=== PATIENT | female | born 1970 | race African-American/Black ===

== ENCOUNTER 2020-11-05 09:17 | Emergency (ER) | payer SELFPAY ==
--- NOTE | 2020-11-05 14:45 | RAD REPORT ---
EXAM DESCRIPTION: RAD - Chest Single View - 11/05/2020 2:38 pm CLINICAL HISTORY: COUGH Chest pain. COMPARISON: No comparisons FINDINGS: Portable technique limits examination quality. The lungs are grossly clear. The heart is normal in size. No displaced fractures. IMPRESSION: No acute intrathoracic process suspected.
[2020-11-05] MEDS ORDERED: ALBUTEROL 2.5 MG/3 ML NEB SOL ONE (14:58)
[2020-11-05] MEDS ORDERED: IPRATROPIUM BROM 0.5MG/2.5ML ONE (14:58)
--- NOTE | 2020-11-05 15:05 | EDPHYS ---
Physician Documentation [facility] Name: Linda Taylor Age: 50 yrs Sex: Female : 1970 Arrival Date: 11/05/2020 Time: 09:23 Bed Treatment Private MD: ED Physician Terry Melgoza HPI: 11/05 16:51 This 50 yrs old Black Female presents to ER via Ambulatory with complaints of Cough, kdr Chills,fatigue. 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 - Social history:: Smoking status: unknown. ROS: 16:58 Constitutional: Negative for fever, chills, and weight loss, Eyes: Negative for injury, kdr pain, redness, and discharge, ENT: Negative for injury, pain, and discharge, Neck: Negative for injury, pain, and swelling, Back: Negative for injury and pain, : Negative for injury, bleeding, discharge, and swelling, MS/Extremity: Negative for injury and deformity, Skin: Negative for injury, rash, and discoloration, Neuro: Negative for headache, weakness, numbness, tingling, and seizure activity. Psych: Negative for depression, anxiety, suicide ideation, homicidal ideation, and hallucinations, Allergy/Immunology: Negative for hives, rash, and allergies, Endocrine: Negative for neck swelling, polydipsia, polyuria, polyphagia, and marked weight changes, Hematologic/Lymphatic: Negative for swollen nodes, abnormal bleeding, and unusual bruising. 16:58 Cardiovascular: Positive for palpitations. 16:58 Respiratory: Positive for cough, with white sputum, dyspnea on exertion, Negative for sputum production, . 16:58 Abdomen/GI: Positive for abdominal distension, black/tarry stool, rectal pain, rectal kdr bleeding, Patient does complain of mild abdominal pain and indicates that she is unable to eat because "her stomach will not let any food go down". Exam: 16:58 Constitutional: This is a well developed, well nourished patient who is awake, alert, kdr and in no acute distress. Head/Face: Normocephalic, atraumatic. Eyes: Pupils equal round and reactive to light, extra-ocular motions intact. Lids and lashes normal. Conjunctiva and sclera are non-icteric and not injected. Cornea within normal limits. Periorbital areas with no swelling, redness, or edema. Neck: Trachea midline, no thyromegaly or masses palpated, and no cervical lymphadenopathy. Supple, full range of motion without nuchal rigidity, or vertebral point tenderness. No Meningismus. Chest/axilla: Normal chest wall appearance and motion. Nontender with no deformity. No lesions are appreciated. Cardiovascular: Regular rate and rhythm with a normal S1 and S2. No gallops, murmurs, or rubs. Normal PMI, no JVD. No pulse deficits. Respiratory: Lungs have equal breath sounds bilaterally, clear to auscultation and percussion. No rales, rhonchi or wheezes noted. No increased work of breathing, no retractions or nasal flaring. Abdomen/GI: Soft, non-tender, with normal bowel sounds. No distension or tympany. No guarding or rebound. No evidence of tenderness throughout. Back: No spinal tenderness. No costovertebral tenderness. Full range of motion. Skin: Warm, dry with normal turgor. Normal color with no rashes, no lesions, and no evidence of cellulitis. MS/ Extremity: Pulses equal, no cyanosis. Neurovascular intact. Full, normal range of motion. Neuro: Awake and alert, GCS 15, oriented to person, place, time, and situation. Cranial nerves II-XII grossly intact. Motor strength 5/5 in all extremities. Sensory grossly intact. Cerebellar exam normal. Normal gait. Psych: Awake, alert, with orientation to person, place and time. Behavior, mood, and affect are within normal limits. Vital Signs: 10:30 BP 100 / 67; Pulse 95; Resp 20; Temp 98.9; Pulse Ox 99% on R/A; da3 10:36 BP 100 / 67; Pulse 95; Resp 20; Temp 98.9; Pulse Ox 99% on R/A; da3 MDM: 15:04 Patient medically screened. kdr 17:01 Data reviewed: vital signs, nurses notes, old medical records, lab test result(s). 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 Medical screen evaluation completed. [facility] emergency medical condition absent. 11/05 12:49 Order name: Flu; Complete Time: 15:02 iw 11/05 13:03 Order name: Strep kdr 11/05 13:03 Order name: Group A Streptococcus Rapid Sc; Complete Time: 15:02 EDAZ 11/05 14:19 Order name: Throat Culture EDAZ 11/05 15:05 Order name: SARS-COV-2 RT PCR; Complete Time: 15:09 EDAZ 11/05 12:42 Order name: CXR XRAY; Complete Time: 15:02 iw Administered Medications: 14:38 Drug: Albuterol - atroVENT (ipratropium) (3:1) (2.5 mg - 0.5 mg) 3 ml Route: Nebulizer; iw 15:10 Follow up: Response: No adverse reaction iw 15:43 Drug: predniSONE 20 mg Route: PO; ms4 16:00 Follow up: Response: No adverse reaction iw Disposition Summary: 11/05/20 15:04 Discharge Ordered Location: Home kdr Condition: Stable kdr Diagnosis - Acute upper respiratory infection, unspecified kdr - Viral infection, unspecified kdr - Cough kdr - Acute bronchitis, unspecified kdr Followup: kdr - With: Private Physician - When: 2 - 3 days - Reason: If symptoms return, Further diagnostic work-up, Recheck today's complaints, Continuance of care, Re-evaluation by your physician Discharge Instructions: - Discharge Summary Sheet kdr - Acute Bronchitis, Adult kdr - Upper Respiratory Infection, Adult kdr - Viral Respiratory Infection, Nypi-Ee-Bebm kdr - COVID-19 kdr - 10 Things You Can Do to Manage Your COVID-19 Symptoms at Home - [facility] kdr - COVID-19: Quarantine vs. Isolation - [facility] kdr - Prevent the Spread of COVID-19 if You Are Sick - [facility] kdr Forms: - Medication Reconciliation Form kdr - Thank You Letter kdr Prescriptions: - albuterol sulfate 90 mcg/actuation Inhalation HFA aerosol inhaler - inhale 2 puff by INHALATION route every 4 hours As needed; 2 puff; Refills: 0, kdr Product Selection Permitted - Tessalon Perles 100 mg Oral Capsule - take 1 capsule by ORAL route every 8 hours As needed; 15 capsule; Refills: 0, kdr Product Selection Permitted - Prednisone 20 mg Oral Tablet - take 1 tablet by ORAL route once daily As specified elsewhere Take one 20 mg kdr tablet twice a day for 7 days. Then take one 20 mg tablet once a day for 7 days. Dispense quantity sufficient.; 21 tablet; Refills: 0, Product Selection Permitted Signatures: Dispatcher [employer] EDAZ Terry Melgoza MD MD kdr Eleanor Nava RN RN iw Roger Ny RN RN da3 Bridgett Infante RN RN ms4 Corrections: (The following items were deleted from the chart) 13:59 12:50 CORONAVIRUS+MR.LAB.BRZ ordered. EDAZ EDMS 17:01 16:58 Constitutional: Negative for fever, chills, and weight loss, Eyes: Negative for kdr injury, pain, redness, and discharge, ENT: Negative for injury, pain, and discharge, Neck: Negative for injury, pain, and swelling, Back: Negative for injury and pain, : Negative for injury, bleeding, discharge, and swelling, MS/Extremity: Negative for injury and deformity, Skin: Negative for injury, rash, and discoloration, Neuro: Negative for headache, weakness, numbness, tingling, and seizure activity. Psych: Negative for depression, anxiety, suicide ideation, homicidal ideation, and hallucinations, Allergy/Immunology: Negative for hives, rash, and allergies, Endocrine: Negative for neck swelling, polydipsia, polyuria, polyphagia, and marked weight changes, Hematologic/Lymphatic: Negative for swollen nodes, abnormal bleeding, and unusual bruising, kdr
--- NOTE | 2020-11-05 15:05 | ER ---
Nurse's Notes [facility] Name: Linda Taylor Age: 50 yrs Sex: Female : 1970 Arrival Date: 11/05/2020 Time: 09:23 Bed Treatment Private MD: Diagnosis: Acute upper respiratory infection, unspecified;Viral infection, unspecified;Cough;Acute bronchitis, unspecified Presentation: 11/05 10:30 Chief complaint: Patient states: Pt states she has cough , chills,Fatigue. can't eat da3 and diarrhea. Coronavirus screen: Client denies travel out of the [place] in the last 14 days. At this time, the client does not indicate any symptoms associated with coronavirus-19. Ebola Screen: No symptoms or risks identified at this time. Initial Sepsis Screen: Does the patient meet any 2 criteria? No. Patient's initial sepsis screen is negative. Risk Assessment: Do you want to hurt yourself or someone else? Patient reports no desire to harm self or others. Risk Assessment: Do you want to hurt yourself or someone else? Patient reports no desire to harm self or others. 10:30 Method Of Arrival: Ambulatory da3 10:30 Acuity: ADRIANNE 4 da3 10:38 Acuity: ADRIANNE 4 da3 13:00 Initial Sepsis Screen: Does the patient have a suspected source of infection? No. iw Patient's initial sepsis screen is negative. Onset of symptoms was November 05, 2020. Triage Assessment: 10:36 General: Appears in no apparent distress. comfortable, obese. 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 - Social history:: Smoking status: unknown. Screenin:00 Abuse screen: Denies threats or abuse. Denies injuries from another. Nutritional iw screening: No deficits noted. Tuberculosis screening: No symptoms or risk factors identified. Fall Risk None identified. Assessment: 12:59 General: Appears in no apparent distress. Behavior is calm, cooperative. General: iw Reports chills for feeling ill for fatigue for. Pain: Denies pain. Neuro: Level of Consciousness is awake, alert, obeys commands. Cardiovascular:. 15:45 Reassessment: patient discharged home with discharge instructions. information given on ms4 quarantine and safety precautions. denies any needs at this time. patient ambulated safely off unit,. Vital Signs: 10:30 BP 100 / 67; Pulse 95; Resp 20; Temp 98.9; Pulse Ox 99% on R/A; da3 10:36 BP 100 / 67; Pulse 95; Resp 20; Temp 98.9; Pulse Ox 99% on R/A; da3 ED Course: 09:23 Patient arrived in ED. mr 10:34 Triage completed. da3 10:47 Terry Melgoza MD is Attending Physician. kdr 12:42 Eleanor Nava, RN is Primary Nurse. iw 13:00 Arm band placed on. iw 13:00 Patient has correct armband on for positive identification. iw 14:38 CXR XRAY In Process Unspecified. EDMS 15:43 No provider procedures requiring assistance completed. iw 15:45 Patient did not have IV access during this emergency room visit. ms4 Administered Medications: 14:38 Drug: Albuterol - atroVENT (ipratropium) (3:1) (2.5 mg - 0.5 mg) 3 ml Route: Nebulizer; iw 15:10 Follow up: Response: No adverse reaction iw 15:43 Drug: predniSONE 20 mg Route: PO; ms4 16:00 Follow up: Response: No adverse reaction iw Outcome: 15:04 Discharge ordered by . kdr 15:44 Discharged to home ambulatory. ms4 15:44 Condition: stable 15:44 Discharge instructions given to patient, Instructed on discharge instructions, medication usage, safety practices, Demonstrated understanding of instructions, follow-up care, medications, Prescriptions given X 3. 15:46 Patient left the ED. ms4 Signatures: Dispatcher [employer] EDMS Terry Melgoza MD MD kdr Sachin Billie mr Eleanor Nava, RN YAIMA iw Roger Ny RN RN da3 Bridgett Infante RN RN ms4
[2020-11-05] MEDS ORDERED: predniSONE 20 MG TAB ONE (15:49)
[2020-11-05 15:57] VITALS: BP 100/67; TEMP 98.9; O2SAT 99
== END 2020-11-05 15:46 | disposition home or self-care (01) ==
LOC: ER 09:17
DX: U07.1 COVID-19 (principal); J20.9 Acute bronchitis, unspecified; J06.9 Acute upper respiratory infection, unspecified; B34.9 Viral infection, unspecified; I10 Essential (primary) hypertension
CPT/HCPCS: 71045; 87070; 87081; 87804; J7512; U0003

== ENCOUNTER 2020-11-12 08:45 | Emergency (ER) | payer SELFPAY ==
--- NOTE | 2020-11-12 09:07 | EDPHYS ---
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 Denies shortness of breath, fever. Taste and smell improving.. Onset: The symptoms/episode began/occurred 1 week(s) ago. Severity of symptoms: At their worst the symptoms were mild in the emergency department the symptoms have improved. The patient has not experienced similar symptoms in the past. The patient has been recently seen at the [facility] Emergency Department. - Family history:: not pertinent. - Hospitalizations: : No recent hospitalization is reported. ROS: 09:03 Constitutional: Negative for fever, chills, and weight loss, Eyes: Negative for injury, rn pain, redness, and discharge, Neck: Negative for injury, pain, and swelling, Cardiovascular: Negative for chest pain, palpitations, and edema, Respiratory: Positive for mild cough, negative for shortness of breath Abdomen/GI: Negative for abdominal pain, nausea, vomiting, diarrhea, and constipation, Back: Negative for injury and pain, : Negative for injury, bleeding, discharge, and swelling, MS/Extremity: Negative for injury and deformity, Skin: Negative for injury, rash, and discoloration, Neuro: Negative for headache, weakness, numbness, tingling, and seizure. Exam: 09:03 Constitutional: This is a well developed, well nourished patient who is awake, alert, rn and in no acute distress. Ambulatory to triage without difficulty or distress. Head/Face: Normocephalic, atraumatic. Eyes: Periorbital areas with no swelling, redness, or edema. Cardiovascular: Regular rate and rhythm. Respiratory: Speaking full sentences. No increased work of breathing, no retractions or nasal flaring. Skin: No cyanosis Neuro: Awake and alert, GCS 15 MDM: 09:03 Differential Diagnosis Covid retest. Data reviewed:. Counseling: I had a detailed rn discussion with the patient and/or guardian regarding: the need for outpatient follow up, to return to the emergency department if symptoms worsen or persist or if there are any questions or concerns that arise at home. Special discussion: I discussed with the patient/guardian in detail that at this point there is no indication for admission to the hospital. It is understood, however, that if the symptoms persist or worsen the patient needs to return immediately for re-evaluation. ED course: Patient here just for Covid retest, stable, normal exam, feels much better without dyspnea. Patient medically screened, chooses to go home, will get retested at [facility].. 09:07 Patient medically screened. 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
--- NOTE | 2020-11-12 09:10 | ER ---
Nurse's Notes [facility] Name: Linda Taylor Age: 50 yrs Sex: Female : 1970 Arrival Date: 11/12/2020 Time: 08:47 Bed Waiting Private MD: Diagnosis: Coronavirus infection, unspecified-Improving - Family history:: not pertinent. - Hospitalizations: : No recent hospitalization is reported. ED Course: 11/12 08:47 Patient arrived in ED. mr 08:47 Rigoberto Harper MD is Attending Physician. rn 09:09 Eleanor Nava RN is Primary Nurse. iw Administered Medications: No medications were administered Outcome: :07 Discharge ordered by . rn 09:09 Patient left the ED. iw Signatures: Billie Stephenson mr Eleanor Nava, RN RN iw Rigoberto Harper MD MD rn
== END 2020-11-12 09:09 | disposition home or self-care (01) ==
LOC: ER 08:45
DX: U07.1 COVID-19 (principal)

== ENCOUNTER 2021-07-03 07:46 | Emergency (ER) | payer OTHER, SELFPAY ==
--- OUTSIDE RECORDS SUMMARY | 2021-07-03 07:48 | XMS REPORT | Continuity of Care Document ---
:1970 Author Organization [facility] t Address [address] [place] [address] Care Team Providers Name Role Phone Emily Larios Attending Clinician Unavailable Physician, Primary or Family Admitting Clinician Unavailabl e Payers Payer Name Policy Type Policy Number Effective Date Expiration Date S ource Problems This patient has no known problems. Allergies, Adverse Reactions, Alerts Allergy Allergy Status Severity Reaction(s) Onset Inactive Treating Comm ents Source Name Type Date Date Clinician No Known DA Active U 2020-04 [facility] Allergie 0-14 [facility] 00:00: [address] No Known DA Active U 2020-04 [facility] Allergie 0-14 [facility] 00:00: [address] Medications This patient has no known medications. Procedures This patient has no known procedures. Encounters Start End Encounter Admission Attending Care Care Encounter Source Date/Time Date/Time Type Type Clinicians Facility Department ID 2021-01-17 Inpatient [facility]CAWU RENATA [id number] [facility] 16:43:00 [id number] [facility] Results Test Description Test Time Test Comments Results Result Comments Source GLUCOSE BEDSIDE TESTING 2021-02-02 01:01:00 Test Item Value Reference Range Interpretation Comme nts GLUCOSE BEDSIDE TESTING (test code = GLUBED) 114 MG/DL 60-99 H BASIC METABOLIC [id number] 20:00:00 Test Item Value Reference Range Interpretation Comments SODIUM (test code = 142 MMOL/L 137-145 N NA) POTASSIUM (test code = 4.1 MMOL/L 3.5-5.1 N K) CHLORIDE (test code = 106 MMOL/L 98-107 N CL) CARBON DIOXIDE (test 29 MMOL/L 22-30 N code = CO2) ANION GAP (test code = 11 MMOL/L 14-24 L GAP) GLUCOSE (test code = 187 MG/DL 74-106 H GLU) BLOOD UREA NITROGEN 22 MG/DL 7-17 H (test code = BUN) GLOMERULAR FILTRATION > 60 Report ing units: RATE (test code = GFR) ml/mi n/1.73 m2 (Modified MDRD Formula)Referen ce Range: > or = 6 0 ml/min/1.73 m2 CREATININE (test code 0.80 MG/DL 0.52-1.04 N = CREAT) CALCIUM (test code = 9.5 MG/DL 8.4-10.2 N CA) [id number] 20:00:00 Test Item Value Reference Range Interpretation Comments TROPONIN-I (test code = TROPI) < 0.012 NG/ML 0.012-0.033 L CBC W/AUTO [id number] 19:37:00 Test Item Value Reference Range Interpretation Comments WHITE BLOOD CELL (test code = 6.7 K/MM3 3.8-9.8 N WBC) RED BLOOD CELL (test code = 4.94 M/MM3 3.58-4.97 N RBC) HEMOGLOBIN (test code = HGB) 13.5 G/DL 11.2-14.9 N HEMATOCRIT (test code = HCT) 42.3 % 33.2-43.5 N MEAN CELL VOLUME (test code = 86 fL 80.7-99.1 N MCV) MEAN CELL HGB (test code = MCH) 27.3 pg 27.0-34.1 N MEAN CELL HGB CONCETRATION 31.9 % 32.2-35.7 L (test code = MCHC) RED CELL DISTRIBUTION WIDTH 14.2 % 12.1-15.2 N (test code = RDW) PLATELET COUNT (test code = 199 K/MM3 129-368 N PLT) MEAN PLATELET VOLUME (test code 12.0 fl 7.4-10.4 H = MPV) NEUTROPHIL % (test code = NT%) 50.5 % 43-75 N IMMATURE GRANULOCYTE % (test 0.4 % 0.0-2.0 N code = IG%) LYMPHOCYTE % (test code = LY%) 39.4 % 14-44 N MONOCYTE % (test code = MO%) 5.5 % 4-13 N EOSINOPHIL % (test code = EO%) 3.6 % 0-6 N BASOPHIL % (test code = BA%) 0.6 % 0-2 N NUCLEATED RBC % (test code = 0.0 % 0-1.0 N NRBC%) NEUTROPHIL # (test code = NT#) 3.40 K/mm3 2.0-7.6 N IMMATURE GRANULOCYTE # (test 0.03 x10 3/uL 0-0.03 N code = IG#) LYMPHOCYTE # (test code = LY#) 2.65 K/mm3 1.0-3.8 N MONOCYTE # (test code = MO#) 0.37 K/mm3 0.1-0.8 N EOSINOPHIL # (test code = EO#) 0.24 K/mm3 0.0-0.2 H BASOPHIL # (test code = BA#) 0.04 K/mm3 0.0-0.2 N NUCLEATED RBC # (test code = 0.00 K/mm3 0.0-0.1 N NRBC#) - XR CHEST [id number] 17:27:00 [facility] 1970 Sex: F Patient Name: DONNA KEYS Unit No: [id number] EXAMS: CPT CODE: [id number] XR CHEST 1V [id number] LOCATION: T18 EXAM: CHEST 1 VIEW INDICATION: , FATIGUE COMPARISON: None. TECHNIQUE: AP chest radiograph.FINDINGS: Lungs are clear bilaterally without effusion. Heart is normal in size. Bones and peripheral soft tissues are unremarkable. IMPRESSION: Lungs are clear. No acute abnormality. at 1727 Reported and signed by: Bobbi Espinal MD CC: Ciaran Roche Technologist: Gloria Wise (RT)(R) Transcrpt Date/Tm/Trnsp: 01/17/2021 (1727) [id number] Orig Print D/T: S: 01/17/2021 (1730) [facility] NAME: DONNA KEYS [id number] PHYS: [place] [address] : 1970 AGE: 50 SEX: F LOC: [facility]ERS PHONE #: [phone] EXAM DATE: 01/17/2021 STATUS: PRE ER FAX #:[phone] RADIOLOGY NO: PAGE 1 Signed Report
[2021-07-03] MEDS ORDERED: ONDANSETRON 4 MG/2 ML VIAL ONE (08:26)
[2021-07-03] MEDS ORDERED: NA CHLORIDE 0.9% 1,000 ML ONE (08:26)
[2021-07-03 08:27] LABS: Hematocrit 41.8 % (36.0-45.0); Lymphocytes % 14.4 % (15.3-44.8); MPV 8.7 fL (7.6-11.3); RBC Red Blood Cell Count 5.09 M/uL (3.86-4.86)
[2021-07-03 08:50] LABS: ALT/SGPT 30 U/L (12-78); AST/SGOT 13 U/L (15-37); Albumin 3.2 g/dL (3.4-5.0); Alkaline Phosphatase 134 U/L (45-117); BUN Blood Urea Nitrogen 20 mg/dL (7-18); Bicarbonate 27 mmol/L (21-32); Bilirubin Total 0.3 mg/dL (0.2-1.0); Glucose Level 227 mg/dL (74-106); Lipase 105 U/L (73-393); Potassium 3.9 mmol/L (3.5-5.1); Protein, Total 7.5 g/dL (6.4-8.2); Sodium Level 140 mmol/L (136-145)
--- NOTE | 2021-07-03 09:22 | RAD REPORT ---
EXAM DESCRIPTION: CTAbdomen Pelvis W Contrast - 07/03/2021 9:13 am CLINICAL HISTORY: ABD PAIN COMPARISON: No comparisons TECHNIQUE: CT of the abdomen and pelvis was performed. All CT scans are performed using dose optimization technique as appropriate and may include automated exposure control or mA/KV adjustment according to patient size. FINDINGS: Lower chest: No acute abnormality. Mild circumferential thickening of distal esophagus. Liver: Hepatic steatosis. Biliary: Cholecystectomy. Stomach: No significant focal abnormality. Duodenum: No significant focal abnormality. Pancreas: No significant abnormality. Spleen: No significant abnormality. Adrenal: No suspicious lesions. Kidney/ureter: No hydronephrosis. No renal calculi. Retroperitoneum: No retroperitoneal adenopathy. Vascular: No aneurysm. Bowel: Normal appendix. Diverticulosis. No diverticulitis. Peritoneum: No ascites or free air. Small fat containing umbilical hernia. Bladder: Grossly unremarkable. Reproductive: No adnexal masses. Bones: No acute fracture. Intramedullary marco left femur. Other: n/a IMPRESSION: No acute intra-abdominal or pelvic finding. Normal appendix.
--- NOTE | 2021-07-03 09:44 | ER ---
Nurse's Notes [facility] Name: Linda Taylor Age: 51 yrs Sex: Female : 1970 Arrival Date: 07/03/2021 Time: 07:49 Bed 8 Private MD: Diagnosis: Abdominal pain, Generalized;Nausea with vomiting, unspecified Presentation: 07/03 08:02 Chief complaint: Patient states: Severe abd pain with N/V started today. States she is ll1 out of all her medications for 3 days. Needs to find a local PCP. Coronavirus screen: Vaccine status: Patient reports receiving the 2nd dose of the covid vaccine. Client denies travel out of the [place] in the last 14 days. nausea, vomiting. Client presents with at least one sign or symptom that may indicate coronavirus-19. Standard/surgical mask placed on the client. Ebola Screen: Patient denies travel to an Ebola-affected area in the 21 days before illness onset. Initial Sepsis Screen: Does the patient meet any 2 criteria? HR > 90 bpm. No. Patient's initial sepsis screen is negative. Does the patient have a suspected source of infection? Yes: Acute abdominal pain. Risk Assessment: Do you want to hurt yourself or someone else? Patient reports no desire to harm self or others. Onset of symptoms was July 03, 2021. 08:02 Method Of Arrival: Ambulatory ll1 08:02 Acuity: ADRIANNE 3 ll1 Triage Assessment: 08:04 General: Appears uncomfortable, Behavior is calm, cooperative, appropriate for age. ll1 Pain: Complains of pain in abdomen Pain currently is 7 out of 10 on a pain scale. Quality of pain is described as aching, crampy. Neuro: No deficits noted. Cardiovascular: No deficits noted. Respiratory: No deficits noted. GI: Reports lower abdominal pain, upper abdominal pain, bloating, nausea, vomiting. Historical: - Allergies: 08:01 No Known Allergies; ll1 - PMHx: 08:01 diabetes mellitus; Hypertensive disorder; ll1 - PSHx: 08:01 hysterectomy; L femure FX repair; ll1 - Immunization history:: Client reports receiving the 2nd dose of the Covid vaccine. - Social history:: Smoking status: Patient denies any tobacco usage or history of. Screenin:05 Abuse screen: Denies threats or abuse. Denies injuries from another. Nutritional bp screening: No deficits noted. Tuberculosis screening: No symptoms or risk factors identified. Fall Risk None identified. Assessment: 08:05 General: SEE TRIAGE NOTE. bp 08:53 Reassessment: No changes from previously documented assessment. Patient and/or family bp updated on plan of care and expected duration. Pain level reassessed. Patient is alert, oriented x 3, equal unlabored respirations, skin warm/dry/pink. 10:30 Reassessment: PT D/C HOME. DX WITH ABDOMINAL PAIN. bp Vital Signs: 08:02 BP 135 / 91; Pulse 91; Resp 18; Temp 97.8; Pulse Ox 99% ; Height 5 ft. 2 in. (157.48 ll1 cm); Pain 7/10; 08:53 BP 130 / 82; Pulse 81; Resp 16; Pulse Ox 96% ; bp 10:29 BP 138 / 92; Pulse 85; Resp 16; Temp 98; Pulse Ox 98% ; bp ED Course: 07:49 Patient arrived in ED. ds1 07:51 Pily Moss FNP-C is PHCP. kb 07:51 Brian Curiel DO is Attending Physician. kb 07:56 Arm band placed on Patient placed in an exam room, on a stretcher. ll1 08:01 Wily Finn, RN is Primary Nurse. bp 08:04 Triage completed. ll1 08:05 Patient has correct armband on for positive identification. Bed in low position. Call bp light in reach. Side rails up X2. 08:20 Inserted saline lock: 20 gauge in right antecubital area, using aseptic technique. bp Blood collected. 09:15 CT Abd/Pelvis - IV Contrast Only In Process Unspecified. EDMS 10:30 No provider procedures requiring assistance completed. IV discontinued, intact, bp bleeding controlled, No redness/swelling at site. Pressure dressing applied. Administered Medications: 08:20 Drug: NS 0.9% 1000 ml Route: IV; Rate: 1 bolus; Site: right antecubital; bp 09:50 Follow up: IV Status: Completed infusion; IV Intake: 1000ml bp 08:20 Drug: Zofran (Ondansetron) 4 mg Route: IVP; Site: right antecubital; bp 09:50 Follow up: Response: Nausea is decreased bp Intake: 09:50 IV: 1000ml; Total: 1000ml. bp Outcome: 09:43 Discharge ordered by MD. graham 10:30 Discharged to home ambulatory. bp 10:30 Condition: stable 10:30 Discharge instructions given to patient, Instructed on discharge instructions, follow up and referral plans. medication usage, Demonstrated understanding of instructions, follow-up care, medications, Prescriptions given X 3. 10:31 Patient left the ED. bp Signatures: Dispatcher [employer] EDMI Pily Moss, QUALITY ASSURANCE MONITOR CHASSIS-C QUALITY ASSURANCE MONITOR CHASSIS-Pretty Kraus ds1 Wily Finn, RN RN bp Christian Zavala RN RN ll1
--- NOTE | 2021-07-03 09:44 | EDPHYS ---
Physician Documentation [facility] Name: Linda Taylor Age: 51 yrs Sex: Female : 1970 Arrival Date: 07/03/2021 Time: 07:49 Bed 8 Private MD: ED Physician Brian Curiel HPI: 07/03 09:35 This 51 yrs old Black Female presents to ER via Ambulatory with complaints of Vomiting, kb Weakness. 09:35 The patient presents to the emergency department with nausea, vomiting, abdominal pain. kb Onset: The symptoms/episode began/occurred this morning. Possible causes: unknown. The symptoms are aggravated by nothing. The symptoms are alleviated by nothing. Associated signs and symptoms: Pertinent positives: abdominal pain, nausea, vomiting, Pertinent negatives: fever. Severity of symptoms: At their worst the symptoms were moderate in the emergency department the symptoms are unchanged. The patient has not experienced similar symptoms in the past. The patient has not recently seen a physician. 09:35 Pt reports nausea, vomiting and abd pain that started this morning. States she has been kb out of her metformin for about 3 days. . Historical: - Allergies: 08:01 No Known Allergies; ll1 - PMHx: 08:01 diabetes mellitus; Hypertensive disorder; ll1 - PSHx: 08:01 hysterectomy; L femure FX repair; ll1 - Immunization history:: Client reports receiving the 2nd dose of the Covid vaccine. - Social history:: Smoking status: Patient denies any tobacco usage or history of. ROS: 09:34 Constitutional: Negative for fever, chills, and weight loss. kb 09:34 Abdomen/GI: Positive for abdominal pain, nausea and vomiting, Negative for diarrhea, constipation. 09:34 All other systems are negative. Exam: 09:34 Constitutional: This is a well developed, well nourished patient who is awake, alert, kb and in no acute distress. Head/Face: Normocephalic, atraumatic. ENT: Moist Mucous membranes Cardiovascular: Regular rate and rhythm with a normal S1 and S2. No gallops, murmurs, or rubs. No pulse deficits. Respiratory: Respirations even and unlabored. No increased work of breathing. Talking in full sentences Skin: Warm, dry with normal turgor. Normal color. MS/ Extremity: Pulses equal, no cyanosis. Neurovascular intact. Full, normal range of motion. Neuro: Awake and alert, GCS 15, oriented to person, place, time, and situation. Moves all extremities. Normal gait. Psych: Awake, alert, with orientation to person, place and time. Behavior, mood, and affect are within normal limits. 09:34 Abdomen/GI: Inspection: abdomen appears normal, Bowel sounds: normal, in all quadrants, Palpation: soft, in all quadrants, mild abdominal tenderness, in all quadrants. Vital Signs: 08:02 BP 135 / 91; Pulse 91; Resp 18; Temp 97.8; Pulse Ox 99% ; Height 5 ft. 2 in. (157.48 ll1 cm); Pain 7/10; 08:53 BP 130 / 82; Pulse 81; Resp 16; Pulse Ox 96% ; bp 10:29 BP 138 / 92; Pulse 85; Resp 16; Temp 98; Pulse Ox 98% ; bp MDM: 07:54 Patient medically screened. kb 09:34 Data reviewed: vital signs, nurses notes. Data interpreted: Pulse oximetry: on room air kb is 96 %. Interpretation: normal. Counseling: I had a detailed discussion with the patient and/or guardian regarding: the historical points, exam findings, and any diagnostic results supporting the discharge/admit diagnosis, lab results, radiology results, the need for outpatient follow up, a family practitioner, to return to the emergency department if symptoms worsen or persist or if there are any questions or concerns that arise at home. 07/03 08:00 Order name: CBC with Diff; Complete Time: 08:42 kb 07/03 08:00 Order name: CMP; Complete Time: 08:50 kb 07/03 08:00 Order name: Lipase; Complete Time: 08:50 kb 07/03 08:00 Order name: Acetone, Serum; Complete Time: 08:50 kb 07/03 08:12 Order name: Glucose, Ancillary Testing; Complete Time: 08:17 EDMS 07/03 09:46 Order name: Urine Dipstick-Ancillary; Complete Time: 09:52 EDMS 07/03 08:00 Order name: IV Saline Lock; Complete Time: 08:29 kb 07/03 08:00 Order name: Labs collected and sent; Complete Time: 08:29 kb 07/03 08:00 Order name: Urine Dipstick-Ancillary (obtain specimen); Complete Time: 08:29 kb 07/03 08:30 Order name: Urine Dipstick-Ancillary (obtain specimen); Complete Time: 09:50 bp 07/03 08:51 Order name: CT Abd/Pelvis - IV Contrast Only; Complete Time: 09:33 kb Administered Medications: 08:20 Drug: NS 0.9% 1000 ml Route: IV; Rate: 1 bolus; Site: right antecubital; bp 09:50 Follow up: IV Status: Completed infusion; IV Intake: 1000ml bp 08:20 Drug: Zofran (Ondansetron) 4 mg Route: IVP; Site: right antecubital; bp 09:50 Follow up: Response: Nausea is decreased bp Disposition: 11:03 Co-signature as Attending Physician, Brian Curiel DO I was immediately available on-site ms3 in the Emergency Department for consultation in the care of the patient.. Disposition Summary: 07/03/21 09:43 Discharge Ordered Location: Home kb Condition: Stable kb Diagnosis - Abdominal pain, Generalized kb - Nausea with vomiting, unspecified kb Followup: kb - With: Emergency Department - When: As needed - Reason: Worsening of condition Followup: kb - With: Private Physician - When: 2 - 3 days - Reason: Recheck today's complaints, Continuance of care, Re-evaluation by your physician Discharge Instructions: - Discharge Summary Sheet kb - Nausea and Vomiting, Adult, [id number] kb - Abdominal Pain, Adult, [id number] kb Forms: - Medication Reconciliation Form kb - Thank You Letter kb - Antibiotic Education kb - Prescription Opioid Use kb Prescriptions: - Zofran 4 mg Oral Tablet - take 1 tablet by ORAL route every 6 hours As needed; 20 tablet; Refills: 0, kb Product Selection Permitted - dicyclomine 20 mg Oral Tablet - take 1 tablet by ORAL route 4 times per day As needed; 20 tablet; Refills: 0, kb Product Selection Permitted - Metformin 500 mg Oral Tablet - take 1 tablet by ORAL route once daily .; 30 tablet; Refills: 0, Product kb Selection Permitted Signatures: Dispatcher [employer] Pily Jade, Wily Batista RN RN Christian Kern RN RN ll1 Brian Curiel DO DO ms3
[2021-07-03 09:46] LABS: Urine Blood Negative (Negative); Urine Glucose Trace (Negative); Urine Protein Negative (Negative); Urine Specific Gravity 1.015 (1.005-1.030)
[2021-07-03 10:40] VITALS: BP 138/92; TEMP 98; O2SAT 98
== END 2021-07-03 10:31 | disposition home or self-care (01) ==
LOC: ER 07:46
DX: R10.84 Generalized abdominal pain (principal); R53.1 Weakness; E11.9 Type 2 diabetes mellitus without complications; I10 Essential (primary) hypertension
CPT/HCPCS: 36415; 74177; 80053; 81003; 82010; 82947; 83690; 85025; J2405; J7030; Q9967

== ENCOUNTER 2021-07-21 07:39 | Emergency (ER) | payer SELFPAY ==
--- OUTSIDE RECORDS SUMMARY | 2021-07-21 07:42 | XMS REPORT | Continuity of Care Document ---
:1970 Author Organization [facility] t Address [address] [place] [address] Care Team Providers Name Role Phone Emily [...] DA Active U 2020-04 [facility] Allergie 0-14 [facility] 00:00: [address] No Known DA Active U 2020-04 [facility] Allergie 0-14 [facility] 00:00: [address] Medications This patient has no known medications. Procedures This patient has no known procedures. Encounters Start End Encounter Admission Attending Care Care Encounter Source Date/Time Date/Time Type Type Clinicians Facility Department ID 2021-01-17 Inpatient [facility] RENATA [id number] [facility] 16:43:00 [id number] [facility] Results Test Description Test Time Test Comments Results Result Comments Source GLUCOSE BEDSIDE TESTING 2021-02-02 01:01:00 Test Item Value Reference Range Interpretation Comme nts GLUCOSE BEDSIDE TESTING (test code = GLUBED) 114 MG/DL 60-99 H BASIC METABOLIC [id number] 20:00:00 Test Item Value Reference Range Interpretation [...] code = 9.5 MG/DL 8.4-10.2 N CA) [id number] 20:00:00 Test Item Value Reference Range Interpretation Comments TROPONIN-I (test code = TROPI) < 0.012 NG/ML 0.012-0.033 L CBC W/AUTO [id number] 19:37:00 Test Item Value Reference Range Interpretation [...] K/mm3 0.0-0.1 N NRBC#) - XR CHEST [id number] 17:27:00 [facility] 1970 Sex: F Patient Name: DONNA KEYS Unit No: [id number] EXAMS: CPT CODE: [id number] XR CHEST 1V [id number] LOCATION: T18 EXAM: CHEST 1 VIEW INDICATION: [...] [id number] Orig Print D/T: S: 01/17/2021 (1730) [facility] NAME: DONNA KEYS [id number] PHYS: [place] [address] : 1970 AGE: 50 SEX: F LOC: [facility]ERS PHONE #: [phone] EXAM DATE: 01/17/2021 STATUS: PRE ER FAX #:[phone] RADIOLOGY NO: PAGE 1 Signed Report
--- NOTE | 2021-07-21 08:42 | RAD REPORT ---
EXAM DESCRIPTION: Kevin Silveira (2 Views)07/21/2021 8:32 am CLINICAL HISTORY: Cough COMPARISON: 2020 FINDINGS: The lungs appear clear of acute infiltrate. The heart is normal size IMPRESSION: No acute abnormalities displayed
[2021-07-21] MEDS ORDERED: ALBUTEROL 2.5 MG/3 ML NEB SOL ONE (09:06)
[2021-07-21] MEDS ORDERED: HYDROCODONE/CHLORPHEN 5 ML/OSYR ONE (09:06)
[2021-07-21] MEDS ORDERED: IPRATROPIUM BROM 0.5MG/2.5ML ONE (09:07)
[2021-07-21 10:14] LABS: SARS-COV-2 RT PCR NEGATIVE (NEGATIVE)
--- NOTE | 2021-07-21 10:23 | ER ---
Nurse's Notes [facility] Name: Linda Taylor Age: 51 yrs Sex: Female : 1970 Arrival Date: 07/21/2021 Time: 07:41 Bed 11 Private MD: Diagnosis: Acute upper respiratory infection, unspecified Presentation: 07/21 08:49 Chief complaint: Patient states: Runny nose, cough, congestion, fatigue x 1 week. jl7 Coronavirus screen: congestion, cough unrelated to allergies, fatigue, At this time, the client does not indicate any symptoms associated with coronavirus-19. Ebola Screen: No symptoms or risks identified at this time. Resp Distress? No respiratory distress is noted at this time. Initial Sepsis Screen: Does the patient meet any 2 criteria? No. Patient's initial sepsis screen is negative. Does the patient have a suspected source of infection? No. Patient's initial sepsis screen is negative. Risk Assessment: Do you want to hurt yourself or someone else? Patient reports no desire to harm self or others. Onset of symptoms was July 14, 2021. 08:49 Method Of Arrival: Ambulatory [facility] 08:49 Acuity: ADRIANNE 3 jl7 Triage Assessment: 08:51 General: Appears in no apparent distress. uncomfortable, Behavior is calm, cooperative, jl7 appropriate for age. Pain: Complains of pain in throat Pain currently is 6 out of 10 on a pain scale. Neuro: Level of Consciousness is awake, alert, obeys commands, Oriented to person, place, time, situation. Cardiovascular: Patient's skin is warm and dry. Respiratory: Airway is patent Respiratory effort is even, unlabored, Respiratory pattern is regular, symmetrical, Breath sounds are clear bilaterally. Derm: Skin is pink, warm \\T\\ dry. 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 - Social history:: Smoking status: unknown. Vital Signs: 08:49 BP 122 / 78; Pulse 97; Resp 17; Temp 98.6; Pulse Ox 96% on R/A; Pain 6/10; jl7 ED Course: 07:41 Patient arrived in ED. as 07:42 Rosendo Carlson MD is Attending Physician. radha 08:33 Chest Pa And Lat (2 Views) XRAY In Process Unspecified. EDMS 08:50 Triage completed. jl7 08:51 Arm band placed on right wrist. jl7 08:53 Ayaan Berg NP is PHCP. pm1 09:08 Jyo Jean Baptiste, RN is Primary Nurse. jl7 09:11 COVID-19/FLU A+B (Document "Date of Onset" if Symptomatic) Sent. zm 09:11 Strep Sent. zm 09:17 Bed in low position. Call light in reach. Door closed. Noise minimized. Warm blanket abhilash given. Administered Medications: 09:07 Drug: Tussionex Pennkinetic ER (chlorpheniramine-hydrocodone) Suspension 5 ml Route: PO;jl7 09:07 Drug: Albuterol - atroVENT (ipratropium) (3:1) (2.5 mg - 0.5 mg) 3 ml Route: Nebulizer; Outcome: 10:23 Discharge ordered by . pm1 11:34 Patient left the ED. Signatures: Dispatcher [employer] EDHI Rosendo Carlson MD MD cha Martinez, Amelia as Marinas, Patrick, ANIKET PRINTING MACHINE MECHANIC pm1 Joy Jean Baptiste RN RN jl7 Breneman, Mary Caren Bush Corrections: (The following items were deleted from the chart) 08:54 08:53 Home Meds: Metformin Oral; jl7 jl
--- NOTE | 2021-07-21 10:24 | EDPHYS ---
Physician Documentation [facility] Name: Linda Taylor Age: 51 yrs Sex: Female : 1970 Arrival Date: 07/21/2021 Time: 07:41 Bed 11 Private MD: ED Physician Rosendo Carlson HPI: 07/21 09:07 This 51 yrs old Black Female presents to ER via Ambulatory with complaints of Cough, pm1 Congestion. 09:07 The patient or guardian reports cough, with productive sputum, that is yellow, runny pm1 nose. Onset: The symptoms/episode began/occurred 1 week(s) ago. Severity of symptoms: in the emergency department the symptoms are unchanged. Modifying factors: The symptoms are alleviated by nothing, the symptoms are aggravated by nothing. Associated signs and symptoms: Pertinent positives: rhinorrhea, sore throat, Pertinent negatives: diarrhea, ear ache, fever, vomiting. The patient has not recently seen a physician. 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 - Social history:: Smoking status: unknown. ROS: 09:07 Constitutional: Negative for fever, chills, and weight loss, Cardiovascular: Negative pm1 for chest pain, palpitations, and edema. 09:07 Abdomen/GI: Negative for abdominal pain, nausea, vomiting, diarrhea, and constipation, Back: Negative for injury and pain, MS/Extremity: Negative for injury and deformity, Skin: Negative for injury, rash, and discoloration, Neuro: Negative for headache, weakness, numbness, tingling, and seizure. 09:07 ENT: Positive for rhinorrhea. 09:07 Respiratory: Positive for cough. 09:07 All other systems are negative. Exam: 09:07 Constitutional: This is a well developed, well nourished patient who is awake, alert, pm1 and in no acute distress. Head/Face: Normocephalic, atraumatic. 09:07 Back: No spinal tenderness. No costovertebral tenderness. Full range of motion. Skin: Warm, dry with normal turgor. Normal color with no rashes, no lesions, and no evidence of cellulitis. MS/ Extremity: Pulses equal, no cyanosis. Neurovascular intact. Full, normal range of motion. 09:07 Cardiovascular: Exam negative for acute changes, Rate: normal, Rhythm: regular, Pulses: no pulse deficits are appreciated. 09:07 Respiratory: Exam negative for acute changes, respiratory distress, shortness of breath, Breath sounds: are clear throughout. 09:07 Abdomen/GI: Exam negative for acute changes, Inspection: abdomen appears normal, Palpation: abdomen is soft and non-tender, in all quadrants. 09:07 Neuro: Exam negative for acute changes, Orientation: is normal, Mentation: is normal, Motor: is normal, moves all fours. Vital Signs: 08:49 BP 122 / 78; Pulse 97; Resp 17; Temp 98.6; Pulse Ox 96% on R/A; Pain 6/10; jl7 MDM: 09:11 Patient medically screened. pm1 10:22 Data reviewed: vital signs. Data interpreted: Pulse oximetry: on room air is 96 %. pm1 Interpretation: normal. Counseling: I had a detailed discussion with the patient and/or guardian regarding: the historical points, exam findings, and any diagnostic results supporting the discharge/admit diagnosis, lab results, radiology results, the need for outpatient follow up, to return to the emergency department if symptoms worsen or persist or if there are any questions or concerns that arise at home. 07/21 07:43 Order name: COVID-19/FLU A+B (Document "Date of Onset" if Symptomatic); Complete Time: [facility] 10:21 07/21 08:54 Order name: Strep; Complete Time: 10:02 pm1 07/21 07:43 Order name: Chest Pa And Lat (2 Views) XRAY; Complete Time: 08:53 [facility] 07/21 09:54 Order name: Throat Culture EDMS Administered Medications: 09:07 Drug: Tussionex Pennkinetic ER (chlorpheniramine-hydrocodone) Suspension 5 ml Route: PO;jl7 09:07 Drug: Albuterol - atroVENT (ipratropium) (3:1) (2.5 mg - 0.5 mg) 3 ml Route: Nebulizer; jl7 Disposition Summary: 07/21/21 10:23 Discharge Ordered Location: Home pm1 Problem: new pm1 Symptoms: have improved pm1 Condition: Stable pm1 Diagnosis - Acute upper respiratory infection, unspecified pm1 Followup: pm1 - With: Emergency Department - When: As needed - Reason: Worsening of condition Followup: pm1 - With: Private Physician - When: 2 - 3 days - Reason: Recheck today's complaints, Continuance of care, Re-evaluation by your physician Discharge Instructions: - Discharge Summary Sheet pm1 - Upper Respiratory Infection, Adult pm1 Forms: - Medication Reconciliation Form pm1 - Thank You Letter pm1 - Antibiotic Education pm1 - Prescription Opioid Use pm1 Prescriptions: - Guaifenesin AC 10-100 mg/5 mL Oral Liquid - take 10 milliliters by ORAL route every 4 hours As needed; 240 milliliter; pm1 Refills: 0, Product Selection Permitted - Ventolin HFA 90 mcg/actuation Inhalation HFA aerosol inhaler - inhale 1 puff by INHALATION route every 4 hours As needed; 1 Inhaler; Refills: pm1 0, Product Selection Permitted Addendum: 07/26/2021 07:42 Co-signature as Attending Physician, Rosendo Carlson MD I agree with the assessment and c sy plan of care. Signatures: Dispatcher [employer] EDMS Rosendo Carlson MD MD cha Marinas, Patrick, DIRECTOR NON PROFIT DIRECTOR NON PROFIT pm1 Joy Jean Baptiste, RN RN jl7 Corrections: (The following items were deleted from the chart) 07/21 08:54 08:53 Home Meds: Metformin Oral; jl7 jl7
[2021-07-21 11:47] VITALS: BP 122/78; TEMP 98.6; O2SAT 96
== END 2021-07-21 11:34 | disposition home or self-care (01) ==
LOC: ER 07:39
DX: J06.9 Acute upper respiratory infection, unspecified (principal); Z20.822 Contact with and (suspected) exposure to COVID-19; E11.9 Type 2 diabetes mellitus without complications; I10 Essential (primary) hypertension
CPT/HCPCS: 0240U; 71046; 87070; 87081; 94640; 99284

== ENCOUNTER 2021-11-17 10:19 | Emergency (ER) | payer SELFPAY ==
--- OUTSIDE RECORDS SUMMARY | 2021-11-17 10:22 | XMS REPORT | Continuity of Care Document ---
:1970 Author Organization [facility] t Address [address] [place] [address] Care Team Providers Name Role Phone Ciaran Larios Attending Clinician Unavailable Physician, No Primary or Family Admitting Clinician Unavaila ble Payers Payer Name Policy Type Policy Number Effective Date Expiration Date S ource Problems This patient has no known problems. Allergies, Adverse Reactions, Alerts Allergy Allergy Status Severity Reaction(s) Onset Inactive Treating Comm ents Source Name Type Date Date Clinician No Known DA Active U 2020-04 [facility] All[facility]ie 0-14 [facility] 00:00: [address] No Known DA Active U 2020-04 [facility] Allergie 0-14 [facility] 00:00: [address] Medications This patient has no known medications. Procedures This patient has no known procedures. Encounters Start End Encounter Admission Attending Care Care Encounter Source Date/Time Date/Time Type Type Clinicians Facility Department ID 2021-01-17 Inpatient HCAWU RENATA [id number] [facility] 16:43:00 [id number] [facility] Results Test Description Test Time Test Comments Results Result Comments Source GLUCOSE BEDSIDE TESTING 2021-02-02 01:01:00 Test Item Value Reference Range Interpretation Comme nts GLUCOSE BEDSIDE TESTING (test code = GLUBED) 114 MG/DL 60-99 H BASIC METABOLIC [id number] 20:00:00 Test Item Value Reference Range Interpretation [...] code = 9.5 MG/DL 8.4-10.2 N CA) [id number] 20:00:00 Test Item Value Reference Range Interpretation Comments TROPONIN-I (test code = TROPI) < 0.012 NG/ML 0.012-0.033 L CBC W/AUTO [id number] 19:37:00 Test Item Value Reference Range Interpretation [...] K/mm3 0.0-0.1 N NRBC#) - XR CHEST [id number] 17:27:00 [facility] : 1970 Sex: F Patient Name: DONNA KEYS Unit No: [id number] EXAMS: CPT CODE: [id number] XR CHEST 1V [id number] LOCATION: [id number]: CHEST 1 VIEW INDICATION: , FATIGUE COMPARISON: None. TECHNIQUE: AP chest radiograph. FINDINGS:Lungs are clear bilaterally without effusion. Heart is normal in size. Bones and peripheral soft tissues are unremarkable. IMPRESSION: Lungs are clear. No acute abnormality. at 1727 Reported and signed by: Bobbi Espinal MD CC: Ciaran Larios MD Technologist: Gloria Wise (RT)(R) Transcrpt Date/Tm/Trnsp: 01/17/2021 (1727) [id number] Orig Print D/T: S: 01/17/2021 (1730) [facility] NAME: DONNA KEYS [id number] PHYS: Ciar[place] [address] : 1970 AGE: 50 SEX: F LOC: Z.ERS PHONE #: [phone] EXAM DATE: 01/17/2021 STATUS: PRE ER FAX #: [phone] RADIOLOGY NO: PAGE 1 Signed Report
--- NOTE | 2021-11-17 12:06 | RAD REPORT ---
EXAM DESCRIPTION: CT - Head Brain Wo Cont - 11/17/2021 11:58 am CLINICAL HISTORY: blurred vision Headache, drowsiness, blurry vision, full body rash. COMPARISON: No comparisons TECHNIQUE: All CT scans are performed using dose optimization technique as appropriate and may inclu de automated exposure control or mA/KV adjustment according to patient size. FINDINGS: No intracranial hemorrhage, hydrocephalus or extra-axial fluid collection.No areas of brai n edema or evidence of midline shift. The paranasal sinuses and mastoids are clear. The calvarium is intact. IMPRESSION: No acute intracranial abnormality.
--- NOTE | 2021-11-17 12:48 | RAD REPORT ---
EXAM DESCRIPTION: US - Extrem Venous W Compress Compa - 11/17/2021 12:41 pm CLINICAL HISTORY: SWELLING Bilateral leg edema and swelling. COMPARISON: No comparisons TECHNIQUE: Real-time sonographic interrogation of the left and right lower extremity deep venous sys tems was performed. FINDINGS: Normal compressibility, flow augmentation, phasic flow and spontaneous flow is identified in both the left and right lower extremity deep venous systems. IMPRESSION: No sonographic evidence of left or right lower extremity deep venous thrombosis.
[2021-11-17 12:49] LABS: Absolute Lymphocytes (CBC) 2.1 K/uL (0.7-4.9); MCV 81.2 fL (80-100); MPV 8.6 fL (7.6-11.3); RBC Red Blood Cell Count 5.29 M/uL (3.86-4.86)
[2021-11-17 13:08] LABS: Potassium 3.7 mmol/L (3.5-5.1); Troponin High Sensitivity 3.8 pg/mL (<58.9)
[2021-11-17 13:30] LABS: Urine Blood Negative (Negative); Urine Glucose Negative (Negative); Urine Protein Trace (Negative); Urine Specific Gravity 1.025 (1.005-1.030); Urine pH 6.5 (5.0-7.0)
--- NOTE | 2021-11-17 14:16 | EDPHYS ---
Physician Documentation [facility] Name: Linda Taylor Age: 51 yrs Sex: Female : 1970 Arrival Date: 11/17/2021 Time: 10:25 Bed 17 Private MD: ED Physician Rosendo Carlson HPI: 11/17 14:08 This 51 yrs old Black Female presents to ER via Ambulatory with complaints of Rash, radha Dizziness, Vision Problem. 14:08 The patient's rash thought to be caused by Dermatitis. The rash is located on the right radha leg and left leg. The rash can be described as raised. Onset: The symptoms/episode began/occurred 2 day(s) ago. Associated signs and symptoms: Pertinent positives: blurry vision. Severity of symptoms: At their worst the symptoms were mild in the emergency department the symptoms are unchanged. The patient has not experienced similar symptoms in the past. 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 - Social history:: Smoking status: Patient denies any tobacco usage or history of. - Family history:: not pertinent. ROS: 14:08 Constitutional: Negative for fever, chills, and weight loss, ENT: Negative for injury, radha pain, and discharge, Neck: Negative for injury, pain, and swelling, Cardiovascular: Negative for chest pain, palpitations, and edema, Respiratory: Negative for shortness of breath, cough, wheezing, and pleuritic chest pain, Abdomen/GI: Negative for abdominal pain, nausea, vomiting, diarrhea, and constipation, Back: Negative for injury and pain, : Negative for injury, bleeding, discharge, and swelling, MS/Extremity: Negative for injury and deformity, Neuro: Negative for headache, weakness, numbness, tingling, and seizure, Psych: Negative for depression, anxiety, suicide ideation, homicidal ideation, and hallucinations, Allergy/Immunology: Negative for hives, rash, and allergies, Endocrine: Negative for neck swelling, polydipsia, polyuria, polyphagia, and marked weight changes, Hematologic/Lymphatic: Negative for swollen nodes, abnormal bleeding, and unusual bruising. 14:08 Skin: Positive for rash, of the right leg and left leg. Exam: 14:08 Constitutional: This is a well developed, well nourished patient who is awake, alert, radha and in no acute distress. Head/Face: Normocephalic, atraumatic. Eyes: Pupils equal round and reactive to light, extra-ocular motions intact. Lids and lashes normal. Conjunctiva and sclera are non-icteric and not injected. Cornea within normal limits. Periorbital areas with no swelling, redness, or edema. ENT: Nares patent. No nasal discharge, no septal abnormalities noted. Tympanic membranes are normal and external auditory canals are clear. Oropharynx with no redness, swelling, or masses, exudates, or evidence of obstruction, uvula midline. Mucous membranes moist. Neck: Trachea midline, no thyromegaly or masses palpated, and no cervical lymphadenopathy. Supple, full range of motion without nuchal rigidity, or vertebral point tenderness. No Meningismus. Chest/axilla: Normal chest wall appearance and motion. Nontender with no deformity. No lesions are appreciated. Cardiovascular: Regular rate and rhythm with a normal S1 and S2. No gallops, murmurs, or rubs. Normal PMI, no JVD. No pulse deficits. Respiratory: Lungs have equal breath sounds bilaterally, clear to auscultation and percussion. No rales, rhonchi or wheezes noted. No increased work of breathing, no retractions or nasal flaring. Abdomen/GI: Soft, non-tender, with normal bowel sounds. No distension or tympany. No guarding or rebound. No evidence of tenderness throughout. Back: No spinal tenderness. No costovertebral tenderness. Full range of motion. Skin: Warm, dry with normal turgor. Normal color with no rashes, no lesions, and no evidence of cellulitis. MS/ Extremity: Pulses equal, no cyanosis. Neurovascular intact. Full, normal range of motion. Neuro: Awake and alert, GCS 15, oriented to person, place, time, and situation. Cranial nerves II-XII grossly intact. Motor strength 5/5 in all extremities. Sensory grossly intact. Cerebellar exam normal. Normal gait. Psych: Awake, alert, with orientation to person, place and time. Behavior, mood, and affect are within normal limits. 14:08 ECG was reviewed by the Attending Physician. Vital Signs: 11:24 Pulse 80; Resp 16; Temp 98.2(TE); Pulse Ox 98% on R/A; Weight 136.08 kg; Height 5 ft. 2 ss in. (157.48 cm); Pain 0/10; 11:28 BP 136 / 106; ss 12:57 BP 142 / 90; Pulse 80; Resp 18; Pulse Ox 100% on R/A; bm7 14:07 BP 138 / 87; Pulse 88; Resp 16; Pulse Ox 100% on R/A; Pain 0/10; bm7 14:56 BP 137 / 95; Pulse 84; Resp 18; Pulse Ox 97% on R/A; Pain 0/10; bm7 11:24 Body Mass Index 54.87 (136.08 kg, 157.48 cm) ss MDM: 12:25 Patient medically screened. [facility] 14:10 Data reviewed: vital signs, nurses notes, lab test result(s), EKG, radiologic studies, radha plain films. Data interpreted: engine monitor: rate is 88 beats/min, rhythm is regular, Pulse oximetry: on room air is 100 %. Test interpretation: by ED physician or midlevel provider: ECG, plain radiologic studies. Counseling: I had a detailed discussion with the patient and/or guardian regarding: the historical points, exam findings, and any diagnostic results supporting the discharge/admit diagnosis, lab results, radiology results, the need for outpatient follow up, for definitive care, a cranberry bog supervisor, an opthalmologist, a family practitioner. 11/17 11:34 Order name: Basic Metabolic Panel; Complete Time: 14:06 [facility] 11/17 11:34 Order name: CBC with Diff; Complete Time: 14:06 [facility] 11/17 11:34 Order name: Troponin HS; Complete Time: 14:06 [facility] 11/17 11:41 Order name: Glucose, Ancillary Testing; Complete Time: 12:18 [facility] 11/17 13:30 Order name: Urine Dipstick-Ancillary; Complete Time: 14:06 [facility] 11/17 14:07 Order name: Urine Culture [facility] 11/17 11:34 Order name: EKG; Complete Time: 11:37 [facility] 11/17 11:34 Order name: Cardiac monitoring; Complete Time: 12:56 [facility] 11/17 11:34 Order name: EKG - Nurse/Tech; Complete Time: 12:56 [facility] 11/17 11:34 Order name: US Extremity Venous W Compression Compa; Complete Time: 14:06 [facility] 11/17 11:35 Order name: CT Head Brain wo Cont; Complete Time: 12:18 [facility] 11/17 14:12 Order name: Chest Single View XRAY; Complete Time: 14:56 [facility] 11/17 11:34 Order name: IV Saline Lock; Complete Time: 12:42 [facility] 11/17 11:34 Order name: Labs collected and sent; Complete Time: 12:42 [facility] 11/17 11:34 Order name: O2 Per Protocol; Complete Time: 12:55 [facility] 11/17 11:34 Order name: O2 Sat Monitoring; Complete Time: 12:55 [facility] 11/17 11:35 Order name: Urine Dipstick-Ancillary (obtain specimen); Complete Time: 13:32 jmm EC:08 Rate is 82 beats/min. Rhythm is regular. QRS [place] is Normal. [place] interval is normal. QRS radha interval is normal. QT interval is normal. No Q waves. T waves are Normal. No ST changes noted. Clinical impression: Normal ECG and No evidence of ischemia. Interpreted by me. Reviewed by me. Administered Medications: 14:29 Drug: Rocephin (cefTRIAXone) 1 grams Route: IV; Rate: per protocol; Site: left hand; 7 14:34 Follow up: IV Status: Completed infusion [facility] 14:29 Drug: Aspirin Chewable Tablet 81 mg Route: PO; 7 14:34 Follow up: Response: No adverse reaction [facility] Disposition Summary: 11/17/21 14:15 Discharge Ordered Location: Home radha Problem: new radha Symptoms: have improved radha Condition: Stable radha Diagnosis - Type 2 diabetes mellitus with hyperglycemia radha - Unspecified disorder of binocular vision - blurry radha - Dermatitis, unspecified radha Followup: radha - With: Private Physician - When: 2 - 3 days - Reason: Recheck today's complaints, Continuance of care, Re-evaluation by your physician Followup: radha - With: Graham Stratton MD - When: 2 - 3 days - Reason: Recheck today's complaints, Re-evaluation by your physician Followup: radha - With: Andres Keane MD - When: 2 - 3 days - Reason: Recheck today's complaints, Re-evaluation by your physician Discharge Instructions: - Discharge Summary Sheet radha - Type 2 Diabetes Mellitus, Diagnosis, Adult radha - Hyperglycemia radha - Rash, Adult radha - Rash, Adult, Sssp-ai-Golj radha - Hyperglycemia, Sgfc-gx-Vckm radha - Type 2 Diabetes Mellitus, Diagnosis, Adult, Ztxc-[id number] radha - Aspirin and Your Heart radha Forms: - Medication Reconciliation Form radha - Thank You Letter radha - Antibiotic Education radha - Prescription Opioid Use [facility] Prescriptions: - Cipro 250 mg Oral Tablet - take 1 tablet by ORAL route every 12 hours; 14 tablet; Refills: 0, Product [facility] Selection Permitted - Glucotrol XL 5 mg Oral tablet extended release 24hr - take 1 tablet by ORAL route once daily with breakfast; 20 tablet; Refills: 0, [facility] Product Selection Permitted Signatures: Dispatcher [employer] Rosendo Bourne MD MD cha Mickail, Joel, PA PA jmm Smirch, Shelby RN RN ss Tri Conroy RN RN bm7
--- NOTE | 2021-11-17 14:16 | ER ---
Nurse's Notes [facility] Name: Linda Taylor Age: 51 yrs Sex: Female : 1970 Arrival Date: 11/17/2021 Time: 10:25 Bed 17 Private MD: Diagnosis: Type 2 diabetes mellitus with hyperglycemia;Unspecified disorder of binocular vision-blurry;Dermatitis, unspecified Presentation: 11/17 11:24 Chief complaint: Patient states: "I think my sugar is up. My vision is a little blurry ss for about a week now. I've also been having all these rashes on me since I woke up a week ago as well.". Coronavirus screen: Client denies travel out of the [place] in the last 14 days. Ebola Screen: Patient denies exposure to infectious person. Patient denies travel to an Ebola-affected area in the 21 days before illness onset. Initial Sepsis Screen: Does the patient meet any 2 criteria? No. Patient's initial sepsis screen is negative. Does the patient have a suspected source of infection? No. Patient's initial sepsis screen is negative. Risk Assessment: Do you want to hurt yourself or someone else? Patient reports no desire to harm self or others. Onset of symptoms was November 10, 2021. 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 - Social history:: Smoking status: Patient denies any tobacco usage or history of. - Family history:: not pertinent. Screenin:56 Abuse screen: Denies threats or abuse. Nutritional screening: No deficits noted. bm7 Tuberculosis screening: No symptoms or risk factors identified. Fall Risk None identified. Assessment: 12:58 Reassessment: Patient and/or family updated on plan of care and expected duration. Pain bm7 level reassessed. Patient is alert, oriented x 3, equal unlabored respirations, skin warm/dry/pink. 14:07 Reassessment: ERP AT BEDSIDE TO ASSESS. bm7 14:56 Pain: Denies pain. bm7 Vital Signs: 11:24 Pulse 80; Resp 16; Temp 98.2(TE); Pulse Ox 98% on R/A; Weight 136.08 kg; Height 5 ft. 2 ss in. (157.48 cm); Pain 0/10; 11:28 BP 136 / 106; ss 12:57 BP 142 / 90; Pulse 80; Resp 18; Pulse Ox 100% on R/A; bm7 14:07 BP 138 / 87; Pulse 88; Resp 16; Pulse Ox 100% on R/A; Pain 0/10; bm7 14:56 BP 137 / 95; Pulse 84; Resp 18; Pulse Ox 97% on R/A; Pain 0/10; bm7 11:24 Body Mass Index 54.87 (136.08 kg, 157.48 cm) ss ED Course: 10:25 Patient arrived in ED. mr 11:26 Triage completed. ss 11:26 Arm band placed on left wrist. ss 12:00 CT Head Brain wo Cont In Process Unspecified. EDMS 12:25 Rosendo Carlson MD is Attending Physician. radha 12:30 Missed attempt(s): 20 gauge in left antecubital area. Bleeding controlled, band aid dh3 applied, catheter tip intact. 12:37 Initial lab(s) drawn, by nv, sent to lab. Inserted saline lock: 22 gauge in left dh3 forearm, using aseptic technique. Blood collected. 12:41 Tri Conroy, RN is Primary Nurse. bm7 12:43 US Extremity Venous W Compression Compa In Process Unspecified. EDMS 12:56 EKG completed in triage. Results shown to . bm7 13:21 Patient has correct armband on for positive identification. Placed in gown. Bed in low bm7 position. Call light in reach. Side rails up X2. Adult w/ patient. Client placed on continuous cardiac and pulse oximetry monitoring. NIBP monitoring applied. cardiac monitor technician on. Warm blanket given. Assisted to bathroom. 14:14 Graham Stratton MD is Referral Physician. radha 14:14 Andres Keane MD is Referral Physician. radha 14:27 Chest Single View XRAY In Process Unspecified. EDMS 14:56 No provider procedures requiring assistance completed. IV discontinued, intact, bm7 bleeding controlled, No redness/swelling at site. Pressure dressing applied. Administered Medications: 14:29 Drug: Rocephin (cefTRIAXone) 1 grams Route: IV; Rate: per protocol; Site: left hand; 7 14:34 Follow up: IV Status: Completed infusion bm7 14:29 Drug: Aspirin Chewable Tablet 81 mg Route: PO; bm7 14:34 Follow up: Response: No adverse reaction bm7 Medication: 14:56 VIS not applicable for this client. bm7 Outcome: 14:15 Discharge ordered by . radha 14:56 Discharged to home ambulatory. bm7 14:56 Condition: good 14:56 Discharge instructions given to patient, family, Instructed on discharge instructions, follow up and referral plans. medication usage, Demonstrated understanding of instructions, follow-up care, medications, Prescriptions given X 2. 14:58 Patient left the ED. 7 Signatures: Dispatcher [employer] EDMS Rosendo Carlson MD MD cha Rivera, Mary mr Smirch, Shelby, RN RN Marina Colon [facility] Tri Conroy, RN RN 7 Corrections: (The following items were deleted from the chart) 11:27 11:26 LMP N/A - Post-menopause ss ss
[2021-11-17] MEDS ORDERED: CEFTRIAXONE 1000 MG/VIAL ONE (14:28)
[2021-11-17] MEDS ORDERED: ASPIRIN 81 MG CHEWABLE TABLET ONE (14:28)
--- NOTE | 2021-11-17 14:45 | RAD REPORT ---
EXAM DESCRIPTION: RAD - Chest Single View - 11/17/2021 2:26 pm CLINICAL HISTORY: COUGH Chest pain. COMPARISON: Chest Pa And Lat (2 Views) dated 07/21/2021; Chest Single View dated 11/05/2020 FINDINGS: Portable technique limits examination quality. The lungs are grossly clear. The heart is normal in size. No displaced fractures. IMPRESSION: No acute intrathoracic process suspected.
[2021-11-17 15:44] VITALS: TEMP 98.2
[2021-11-17 16:03] VITALS: BP 137/95; O2SAT 97
--- NOTE | 2021-11-19 08:19 | EKG ---
Test Date: 2021-11-17 Test Time: 12:53:13 [employer] Team Member: SUSAN MEASUREMENT RESULTS: Intervals: Rate: 82 KS: 154 QRSD: 82 QT: 386 QTc: 450 [place]: P: 65 KS: 154 QRS: 40 T: 41 INTERPRETIVE STATEMENTS: Normal sinus rhythm Normal ECG No previous ECG available for comparison Electronically Signed On 11-19-21 08:11:53 CDT by Graham Stratton
== END 2021-11-17 14:58 | disposition home or self-care (01) ==
LOC: ER 10:19
DX: L30.9 Dermatitis, unspecified (principal); E11.65 Type 2 diabetes mellitus with hyperglycemia; H53.30 Unspecified disorder of binocular vision; I10 Essential (primary) hypertension
CPT/HCPCS: 36415; 70450; 71045; 80048; 81003; 82947; 84484; 85025; 87086; 87088; 93005; 93970; 96374; 99284